=== PATIENT | female | born 1940 | race Caucasian/White ===

== ENCOUNTER 2019-04-27 05:30 | Inpatient (IN) | payer MEDICARE, OTHER ==
[2019-04-27] VITALS (20 sets, daily range): BP systolic 93–179; BP diastolic 36–137
[~2019-04-27] VITALS: Ht 160 cm; Wt 60.8 kg
--- NOTE | 2019-04-27 05:30 | NUR ---
ED Nurse Note: CESAR STONE FROM HOME C/O RESPIRATORY DISTRESS. PER EMS, PT NOT TOLERATING CPAP. GIVEN BREATHING TREATMENT ON SCENE. AO4.
--- NOTE | 2019-04-27 05:30 | NUR ---
ED Nurse Note: IV ACCESS ESTABLISHED. BLOOD COLLECTED; SENT DOWN TO LAB.
[2019-04-27] MEDS ORDERED: PRAVASTATIN SOD20 M1 ORAL (05:31)
--- NOTE | 2019-04-27 05:41 | Emergency Room Report ---
History of Present Illness General Chief Complaint: Dyspnea/Respdistress Source: Patient (Scar Mayer MD) Present Illness HPI This is a 78-year-old female with a history of asthma and hypertension. She presents with chief complaint of respiratory distress. She called 911 because she could not breathe when she woke up. Per EMS she was in severe respiratory distress. She was very tight and wheezing. Her oxygenation on room air was only 79%. They gave her albuterol treatment and nonrebreather mask. That brought it up to mid 80s%. No history of COPD. She is not a smoker. Denies any trauma. Has chest tightness. Nothing made it better. Exertion made it worse. History is limited because of patient respiratory distress. (Scar Mayer MD) Allergies: Coded Allergies: No Known Allergies (Unverified , 04/27/19) Patient History Past Medical History: see triage record, old chart reviewed, HTN, asthma Past Surgical History: other Pertinent Family History: none Social History: Denies: smoking Last Menstrual Period: unable to assess Now: No Immunizations: other Reviewed Nursing Documentation: PMH: Agreed; PSxH: Agreed (Scar Mayer MD) Nursing Documentation-PMH Past Medical History: No History, Except For Hx Hypertension: Yes Hx Asthma: Yes (Scar Mayer MD) Review of Systems Respiratory: Reports: shortness of breath, wheezing All Other Systems: limited - Secondary to condition (Scar Mayer MD) Physical Exam Vital Signs Date Time Temp Pulse Resp B/P (MAP) Pulse Ox O2 Delivery O2 Flow Rate FiO2 04/27/19 05:25 123 36 98 Simple Mask 15.0 Vitals with tachycardia and hypoxia Sp02 EP Interpretation: abnormal General Appearance: severe distress Head: normocephalic, atraumatic Eyes: bilateral eye PERRL, bilateral eye EOMI ENT: hearing grossly normal, normal pharynx Neck: full range of motion, supple, no meningismus Respiratory: chest non-tender, respiratory distress, decreased breath sounds - Very tight, accessory muscle use, wheezing Cardiovascular #1: regular rate, rhythm, no murmur, tachycardia Gastrointestinal: normal bowel sounds, non tender, no mass, no organomegaly, no bruit, non-distended Musculoskeletal: back normal, normal range of motion Neurologic: alert, oriented x3 Psychiatric: mood/affect normal Skin: warm/dry (Scar Mayer MD) Procedures Critical Care Time Critical Care Time Critical care is mandated in this patient who presented with acute respiratory failure. Patient require my urgent intervention to attenuate the risks of respiratory collapse which may lead to cardiovascular collapse and . Critical care time is 35 minutes excluding any reportable procedure. Critical care time included evaluation, multiple reevaluation, looking at old charts, interpreting laboratory and diagnostic data, discussing case with patient and family and consultants, and charting. (Scar Mayer MD) Medical Decision Making Diagnostic Impression: Primary Impression: Acute respiratory failure with hypoxia Additional Impressions: Status asthmaticus Qualified Codes: J45.52 - Severe persistent asthma with status asthmaticus Respiratory distress Lactic acidosis Hypertension Qualified Codes: I10 - Essential (primary) hypertension CHF (congestive heart failure) Qualified Codes: I50.9 - Heart failure, unspecified ER Course Patient presents with respiratory distress requiring BiPAP. She doing much better on BiPAP. Wheezing improved. She also has a lactic acidosis. This may be secondary to her hypoxia and respiratory distress. She may also have a right lower lobe infiltrate. There is a component of CHF also. Because of her condition and cardiac status, unable to give 30 cc/kg bolus. Patient [place] care doctor [place] [facility] [place]. For this reason, I will admit this patient to Dr. Linares. I signed this out to Dr. Pablo for final disposition. (Scar Mayer MD) ER Course Patient was signed out to me for final disposition. I have evaluated the patient as well. Patient was a signout from Dr. Mayer. Patient on clinical exam appeared tachypneic and had diffuse inspiratory expiratory wheezing. Patient was also tachycardic. Because of this evaluation I decided to add magnesium to the patient's treatment. Patient received a total of 2 g of magnesium. After receiving this medication patient appeared to be improved with improved respiratory rate. Patient appeared to be more comfortable. RTO blood gas was performed which show patient to be oxygenating well and with no evidence of CO2 retention. Laboratory work-up that showed an elevated lactic acid level. Severe sepsis was suspected on arrival. Patient had blood cultures initiated lactic acid level was initiated sepsis protocol was initiated on arrival. Patient also received IV antibiotics. Patient however is elderly and has already an elevated BNP. Therefore we were unable to initiate the 30 cc/kg fluid bolus. Instead patient was started on 50 cc fluid bolus with a intention of gentle hydration to improve patient's fluid status. However we cannot start with a 30 cc/kg fluid bolus because of concern for fluid overload. Case was discussed in detail with Dr. Sp Linares. Patient will be admitted to the intensive care unit for further treatment. Patient had a critical medical condition which untreated could potentially result in life or limb threatening injury. Total critical care time excluding procedures was approximately 45 minutes. Labs Test 04/27/19 05:30 04/27/19 06:00 04/27/19 06:06 04/27/19 06:47 White Blood Count 15.1 K/UL (4.8-10.8) Red Blood Count 4.76 M/UL (4.20-5.40) Hemoglobin 14.0 G/DL (12.0-16.0) Hematocrit 42.4 % (37.0-47.0) Mean Corpuscular Volume 89 FL (80-99) Mean Corpuscular Hemoglobin 29.4 PG (27.0-31.0) Mean Corpuscular Hemoglobin Concent 33.0 G/DL (32.0-36.0) Red Cell Distribution Width 11.9 % (11.6-14.8) Platelet Count 435 K/UL (150-450) Mean Platelet Volume 5.6 FL (6.5-10.1) Neutrophils (%) (Auto) 60.3 % (45.0-75.0) Lymphocytes (%) (Auto) 27.8 % (20.0-45.0) Monocytes (%) (Auto) 5.7 % (1.0-10.0) Eosinophils (%) (Auto) 5.2 % (0.0-3.0) Basophils (%) (Auto) 0.9 % (0.0-2.0) Prothrombin Time 10.0 SEC (9.30-11.50) Prothromb Time International Ratio 0.9 (0.9-1.1) Activated Partial Thromboplast Time 24 SEC (23-33) Sodium Level 141 MMOL/L (136-145) Potassium Level 3.7 MMOL/L (3.5-5.1) Chloride Level 105 MMOL/L (98-107) Carbon Dioxide Level 25 MMOL/L (21-32) Anion Gap 11 mmol/L (5-15) Blood Urea Nitrogen 15 mg/dL (7-18) Creatinine 1.2 MG/DL (0.55-1.30) Estimat Glomerular Filtration Rate mL/min (>60) Glucose Level 194 MG/DL (74-106) Calcium Level 8.7 MG/DL (8.5-10.1) Total Bilirubin 0.5 MG/DL (0.2-1.0) Aspartate Amino Transf (AST/SGOT) 22 U/L (15-37) Alanine Aminotransferase (ALT/SGPT) 21 U/L (12-78) Alkaline Phosphatase 82 U/L (46-116) Total Creatine Kinase 295 U/L (26-308) Creatine Kinase MB 2.3 NG/ML (0.0-3.6) Creatine Kinase MB Relative Index 0.7 Troponin I 0.000 ng/mL (0.000-0.056) Pro-B-Type Natriuretic Peptide 1153 pg/mL (0-125) Total Protein 7.4 G/DL (6.4-8.2) Albumin 4.2 G/DL (3.4-5.0) Globulin 3.2 g/dL Albumin/Globulin Ratio 1.3 (1.0-2.7) Urine Color Pale yellow Urine Appearance Clear Urine pH 5 (4.5-8.0) Urine Specific [place] 1.020 (1.005-1.035) Urine Protein 2+ (NEGATIVE) Urine Glucose (UA) Negative (NEGATIVE) Urine Ketones Negative (NEGATIVE) Urine Blood 2+ (NEGATIVE) Urine Nitrite Negative (NEGATIVE) Urine Bilirubin Negative (NEGATIVE) Urine Urobilinogen Normal MG/DL (0.0-1.0) Urine Leukocyte Esterase Negative (NEGATIVE) Urine RBC 2-4 /HPF (0 - 2) Urine WBC 0-2 /HPF (0 - 2) Urine Squamous Epithelial Cells Few /LPF (NONE/OCC) Urine Bacteria Occasional /HPF (NONE) Lactic Acid Level 3.90 mmol/L (0.4-2.0) Arterial Blood pH 7.381 (7.350-7.450) Arterial Blood Partial Pressure CO2 39.4 mmHg (35.0-45.0) Arterial Blood Partial Pressure O2 61.0 mmHg (75.0-100.0) Arterial Blood HCO3 22.8 mmol/L (22.0-26.0) Arterial Blood Oxygen Saturation 90.8 % (95-100) Arterial Blood Base Excess -2.0 (-2-2) Dustin Test Positive Test 04/27/19 07:00 Lactic Acid Level 2.90 mmol/L (0.66-2.22) (Garland Pablo MD) EKG Diagnostic Results Rate: normal, tachycardiac Rhythm: NSR ST Segments: other - LBBB (Scar Mayer MD) Rhythm Strip Diag. Results EP Interpretation: yes Rate: 100 Rhythm: NSR, no PVC's, no ectopy (Scar Mayer MD) EP Interpretation: yes Rate: 94 Rhythm: NSR, no PVC's, no ectopy (Garland Pablo MD) Chest X-Ray Diagnostic Results Chest X-Ray Diagnostic Results : Chest X-Ray Ordered: Yes # of Views/Limited/Complete: 1 View Indication: Shortness of Breath EP Interpretation: Yes Interpretation: no effusion, no pneumothorax, other - Right lower lobe infiltrate Impression: Other - Lower lobe infiltrate Electronically Signed by: Scar Mayer MD (Scar Mayer MD) Chest X-Ray Diagnostic Results : Chest X-Ray Ordered: Yes # of Views/Limited/Complete: 1 View Indication: Shortness of Breath EP Interpretation: Yes Interpretation: no effusion, no pneumothorax, other - Bilateral basilar haziness consistent with pneumonia versus atelectasis Impression: Other - Pneumonia versus atelectasis Electronically Signed by: Electronically signed by Garland Pablo MD (Garland Pablo MD) Last Vital Signs Date Time Temp Pulse Resp B/P (MAP) Pulse Ox O2 Delivery O2 Flow Rate FiO2 04/27/19 05:25 123 36 98 Simple Mask 15.0 Status: improved (Scar Mayer MD) Status: improved (Garland Pablo MD) Disposition: ADMITTED INPATIENT Condition: Critical Scar Mayer MD Apr 27, 2019 05:41 Garland Pablo MD Apr 27, 2019 07:36
[2019-04-27] MEDS ORDERED: Solu-MEDROL 125mg Inj IVP ONE (05:45)
[2019-04-27] MEDS ORDERED: Ipratropium 0.02% Inh Soln 2.5ml UD HHN ONE (05:45)
[2019-04-27] MEDS ORDERED: Albuterol ud Inhalation HHN ONE (05:45)
--- NOTE | 2019-04-27 06:00 | NUR ---
ED Nurse Note: urine collected; sent down to lab.
[2019-04-27 06:10] LABS: BASOPHILS % (AUTO) 0.9 % (0.0-2.0); EOSINOPHILS % (AUTO) 5.2 % (0.0-3.0); HEMATOCRIT 42.4 % (37.0-47.0); LYMPHOCYTES % (AUTO) 27.8 % (20.0-45.0); MEAN CORPUSCULAR VOLUME 89 FL (80-99); MONOCYTES % (AUTO) 5.7 % (1.0-10.0); NEUTROPHILS % (AUTO) 60.3 % (45.0-75.0); PLATELET COUNT 435 K/UL (150-450); RED BLOOD COUNT 4.76 M/UL (4.20-5.40); RED CELL DISTRIBUTION WIDTH 11.9 % (11.6-14.8); WHITE BLOOD COUNT 15.1 K/UL (4.8-10.8)
[2019-04-27] MEDS ORDERED: Cefepime HCl 1 GM in D5W 55 ML IVPB ONE (06:15)
[2019-04-27 06:18] LABS: APPEARANCE,URINE CLEAR; BILIRUBIN, URINE NEGATIVE (NEGATIVE); COLOR,URINE PALE YELLOW; GLUCOSE, URINE (UA) NEGATIVE (NEGATIVE); KETONES,URINE NEGATIVE (NEGATIVE); LEUKOCYTE ESTERASE ,URINE NEGATIVE (NEGATIVE); NITRITE,URINE NEGATIVE (NEGATIVE); PH,URINE 5 (4.5-8.0); PROTEIN,URINE 2+ (NEGATIVE); UROBILINOGEN,URINE NORMAL MG/DL (0.0-1.0)
[2019-04-27 06:22] LABS: ANION GAP 11 mmol/L (5-15); BLOOD UREA NITROGEN 15 mg/dL (7-18); CALCIUM 8.7 MG/DL (8.5-10.1); CARBON DIOXIDE 25 MMOL/L (21-32); CHLORIDE 105 MMOL/L (98-107); CREATININE 1.2 MG/DL (0.55-1.30); POTASSIUM 3.7 MMOL/L (3.5-5.1); SODIUM 141 MMOL/L (136-145)
[2019-04-27 06:23] LABS: INR 0.9 (0.9-1.1)
[2019-04-27 06:35] LABS: ALANINE AMINOTRANSFERASE 21 U/L (12-78); ALBUMIN 4.2 G/DL (3.4-5.0); ALBUMIN/GLOBULIN RATIO 1.3 (1.0-2.7); ALKALINE PHOSPHATASE 82 U/L (46-116); ASPARTATE AMINO TRANSFERASE 22 U/L (15-37); BILIRUBIN,TOTAL 0.5 MG/DL (0.2-1.0); CKMB 2.3 NG/ML (0.0-3.6); CREATINE KINASE 295 U/L (26-308)
[2019-04-27] MEDS ORDERED: Magnesium Sulfate 2ml Inj IVPB ONE (06:45)
[2019-04-27] MEDS: Magnesium Sulfate 1gm/100ml IVPB SCH ×2 (06:48→07:18)
--- NOTE | 2019-04-27 06:51 | NUR ---
ED Nurse Note: vre cre mrsa swabs collected; sent down to lab.
--- NOTE | 2019-04-27 07:00 | NUR ---
ED Nurse Note: iv access established. repeat lactic drawn; sent down to lab.
--- NOTE | 2019-04-27 07:02 | NUR ---
ED Nurse Note: Received pt from Yogesh Puente RN. Second Lactic Acid was sent down to lab by previous RN. Pt is on BiPAP with the same setting on intervention. Pt AOx3, VSS luis. Will cont to monitor.
--- NOTE | 2019-04-27 07:06 | NUR ---
HAND-OFF: Report given to okle velásquez. patient in stable condition. endorsed pending admission.
--- NOTE | 2019-04-27 07:35 | NUR ---
ED Nurse Note: Fi02 changed to 60% by RT. Luca
--- NOTE | 2019-04-27 07:40 | NUR ---
TRANSFER TO FLOOR: Patient transferred to as ordered, per Dr. Pablo. Report given to YOSELYN Chavez at ext [phone]. Belongings kept with patient.
--- NOTE | 2019-04-27 08:15 | NUR ---
NURSE NOTES: Patient arrived at the bedside with YOSELYN Avery. patient is awake and alert to name, time pklace and situation. she denies any pain, placed on bipap with settings 15/5 at 60% FIO2, has a right FA 18G and a Right 18G FA saline lock, will call dr. mario for admission orders.
--- NOTE | 2019-04-27 09:00 | NUR ---
NURSE NOTES: Dr. mario assessed patient at the bedside and placed orders, for patient.
[2019-04-27] MEDS: Lisinopril 20mg tab ORAL SCH ×2 (09:02→17:55)
[2019-04-27] MEDS ORDERED: Azithromycin 500 MG in D5W 275 ML IV SCH (10:00)
--- NOTE | 2019-04-27 10:27 | Diagnostic Imaging Report ---
Indication: Dyspnea Comparison: None A single view chest radiograph was obtained. Findings: Cardiomediastinal appearance is within normal limits for age. The lungs are clear. Pulmonary vascularity is appropriate. The diaphragmatic contour is smooth and costophrenic angles are sharp. No pleural effusions are identified. The bones are unremarkable. Impression: No acute findings
[2019-04-27] MEDS: Albuterol/Ipratropium 3ml neb HHN SCH ×4 (11:00→23:26)
[2019-04-27] MEDS ORDERED: DiphenhydrAMINE 50mg/ml Inj IVP PRN (11:45)
[2019-04-27] MEDS: Solu-MEDROL 125mg Inj IVP SCH ×2 (11:57→17:55)
[2019-04-27] MEDS: LORazepam Inj 2mg/ml 1ml IV PRN ×2 (11:57→16:13)
--- NOTE | 2019-04-27 12:00 | NUR ---
NURSE NOTES: Patient placed on Venturi mask at 55% with saturations at 94-98% RR remains at 24-30, Bipap placed on PRN
--- NOTE | 2019-04-27 15:00 | NUR ---
NURSE NOTES: family member at the bedside and updated on patient condition, she remains on venturi mask at 55% tripoding on bedside table, saturations remains at 95-99% with RR of 26-32.
--- NOTE | 2019-04-27 16:00 | NUR ---
NURSE NOTES: Dr. Platt updated on patient progress on Venturi mask at 55% no further orders given at this time.
--- NOTE | 2019-04-27 16:48 | NUR ---
CASE MANAGEMENT: INITIAL REVIEW 78 YO F BIBA FROM HOME CC: DYSPNEA PMHx: HTN. ASTHMA. SI:RESP FAILURE. PNA. HYPOXIA. HR 123 RR 36 B/P SATS 98% ON SIMPLE MASK 15L WBC 15.1 GLU 194 BNP 1153 ABGs PO2 61 O2 SAT 90.8 IS: GIOVANNA NEB HHN X1 SOLU MEDROL IV X1 CEFEPIME IV X1 LEVOQUIN IV X1 PATIENT ADMITTED TO ICU 04/27/2019 @ [facility] DCP:PATIENT TO BE DISCHARGED TO HOME ONCE MEDICALLY CLEARED. PLAN OF CARE: PULMO CONSULT Addendum: 04/28/19 at 1557 by Sandra Pruett CM INTERQUAL MET FOR ACUTE
--- NOTE | 2019-04-27 17:11 | History & Physical ---
History and Physical History & Physicial dict status asthmaticus HTN Sp Linares MD Apr 27, 2019 17:11
--- NOTE | 2019-04-27 18:00 | NUR ---
NURSE NOTES: Patient remains calm on Venturi mask at 55% with saturations at 96-99%, she is resting with no distress noted, patient remains awake and alert x4, denies any pain over chest
--- NOTE | 2019-04-27 19:23 | NUR ---
HAND-OFF: Report given to YOSELYN azar.
--- NOTE | 2019-04-27 19:24 | NUR ---
NURSE NOTES: Received patient from YOSELYN Chavez. Patient VS stable at this time. Patient blood pressure 124/54, oxygen saturation 99-100%, RR 28, and no sign of acute distress. Patient showing sinus tachycardia with rate of 106 on the natural resource manager. Patient reported to be alert and oriented when awake but is sleeping at this time. Will assess mental status when patient wakes up. Patient on Venturi mask with 50% FiO2 at this time. Patient has an order for BiPAP as needed. Will monitor patient for signs of a need for BIPAP support. Patient has some accessory muscle use visible upon inspiration. YOSELYN Chavez reported that her breathing has improved significantly since admission. Patient laying on her left side. No sign of acute distress. Patient bed in low position with bed alarm on and call light in reach. Will continue to monitor patient breathing and oxygen saturation.
--- NOTE | 2019-04-27 19:25 | NUR ---
NURSE NOTES: Patient complaining of headache. Dr Linares notified. Patient states that she takes excedrin for headache. ordered Excedrin one dose PO every 6 hours PRN for headache. Order placed. Awaiting pharmacy verification. Patient on 4L NC. Oxygen saturation 100%. Patient coughing up scant amount of phlegm.Patient states that her chest feels better. Wheezes present in all four lobes. Will continue to monitor.
[2019-04-27] MEDS: Excedrin Migraine tab ORAL PRN (20:05)
--- NOTE | 2019-04-27 22:00 | NUR ---
NURSE NOTES: Patient blood pressure dropped from 134/62 at 2030 to 94/38 at 2200. Patient blood pressure recycled at 93/44. Patient sleeping. Will notify MD and continue to monitor.
[2019-04-27] MEDS: cefTRIAXone 1 GM in D5W 55 ML IVPB SCH (22:30)
--- NOTE | 2019-04-27 23:00 | History and Physical Report ---
DATE OF ADMISSION: 04/27/2019 CHIEF COMPLAINT: Short of breath. HISTORY OF PRESENT ILLNESS: The patient presented to the emergency department with several days of increasing shortness of breath and cough. She had been to urgent care yesterday for cough and was treated with nebulizer therapy. Her blood pressure was elevated. She was discharged with a Medrol Dosepak. Today, she has presented via paramedics with severe shortness of breath and saturation was only 79%. She was given oxygen and placed on the BiPAP. She was given steroids and antibiotics. PAST MEDICAL HISTORY: Hypertension and asthma. Smoking none. ALLERGIES: None. REVIEW OF SYSTEMS: Cannot be obtained because she is on BiPAP, but she can answer a few simple questions. She indicates she has a cough with clear sputum and no high fever. She has no pain. She has had asthma since childhood. PHYSICAL EXAMINATION: GENERAL: The patient is alert and responds appropriately. She has tachycardia and had tachypneic earlier that has resolved. HEENT: The head is normocephalic. NECK: No jugular venous distention. CHEST: Decreased breath sounds. CARDIAC: Rhythm is regular. ABDOMEN: Soft and nontender. EXTREMITIES: No clubbing, cyanosis, or edema. LABORATORY AND DIAGNOSTIC DATA: Chest x-ray shows no acute changes. IMPRESSION: 1. Status asthmaticus. 2. Hypertension. PLAN: The patient was given steroids, bronchodilator treatments, and antibiotics. The elevated lactic acid levels may be a result of respiratory distress without sepsis. However, it is prudent to cover with antibiotics for possible respiratory infection. She was given some fluids, but the natriuretic peptide is somewhat elevated. We will start a trial of natural breathing without BiPAP and start her on oral diet. She will remain in the intensive care for now. Sp Linares M.D. DR: PANKAJ JOB#: [id number] CC: Sp Linares M.D.; Fax#: [phone]
--- NOTE | 2019-04-27 23:04 | NUR ---
NURSE NOTES: Spoke with Dr Linares regarding the patient's blood pressure of 98/36 along with lactic acid level of 2.3 and WBC of 15.1. He ordered D5NS at 75mL/hr. Will continue to monitor patient's blood pressure and vital signs. Dr Linares notified me that Dr Colon is international marketing executive for him tonight.
[2019-04-27] MEDS: D5NS 1,000 ML IV SCH (23:11)
[2019-04-28] VITALS (25 sets, daily range): BP systolic 95–152; BP diastolic 41–102
[2019-04-28] MEDS: Solu-MEDROL 125mg Inj IVP SCH ×3 (00:20→11:38)
--- NOTE | 2019-04-28 01:30 | NUR ---
NURSE NOTES: Patient sleeping. blood pressure now 112/59. D5NS is running at 75mL/hr. Lactic acid level 2.4. Will endorse to day shift to notify MD and will order another lactic lab to be drawn in 4 hours per protocol. No sign of acute distress. Patient sleeping. Patient on 4L NC with oxygen saturation 100%. Patient showing sinus rhythm with bundle branch block on the monitor. Patient bed in low position with call light in reach.
--- NOTE | 2019-04-28 01:59 | NUR ---
NURSE NOTES: Patient reported that she takes a sleeping pill at home. Patient informed that given her current respiratory condition, sleeping pills are not advisable.
--- NOTE | 2019-04-28 03:30 | NUR ---
NURSE NOTES: Patient sleeping with no sign of acute distress. RT turned NC from 4L to 2L. Patient's blood pressure 104/53. Patient bed in low position with call light within reach. Will continue to monitor for signs of acute respiratory distress.
[2019-04-28] MEDS: Albuterol/Ipratropium 3ml neb HHN SCH ×6 (03:38→23:43)
--- NOTE | 2019-04-28 05:30 | NUR ---
NURSE NOTES: Patient sleeping. Blood pressure 98/48. Patient's blood pressure seems to drop when she is soundly sleeping. Patient lying flat with legs elevated to improve blood pressure/circulation while she sleeps. Oxygen saturation 100% and school lunch monitor showing sinus rhythm with a BBB and rate of 97 on the school lunch monitor. Patient showing on sign of acute distress. Patient bed in low position and call light in reach.
--- NOTE | 2019-04-28 07:11 | NUR ---
HAND-OFF: Report given to YOSELYN Ash. Patient blood pressure low at 95/50. This is abnormal for this patient. Patient on D5NS at 75mL/hr. Patient is asymptomatic. Patient denies pain, dizziness, or acute distress. MD aware of blood pressure. Patient Lactic consistently about 2. Current lactic acid is 2.7. Endorsed to follow up with Dr Linares.
--- NOTE | 2019-04-28 07:15 | NUR ---
NURSE NOTES: Received pt from Mackenzie Shipman RN. Pt is AAOx4, BP 95/50- asymptomatic. Pt is on 2L O2 via NC. RFA + LFA 18g IVs noted. RFA IV is running D5NS at 75cc/hr. Pt uses bedpan to void/eliminate. No skin alterations noted at this time. Last LA noted to be 2.7. Per YOSELYN Mann. LA is scheduled to be redrawn at 0800 per protocol. Bed is in lowest position with alarm on, call light within reach, will continue to monitor pt and update Dr. Linares.
[2019-04-28] MEDS: Lisinopril 20mg tab ORAL SCH (08:34)
[2019-04-28] MEDS: Vitamin D 1000 IU Tab ORAL SCH (08:34)
[2019-04-28] MEDS: Azithromycin 250mg tab ORAL SCH (08:34)
[2019-04-28] MEDS ORDERED: Azithromycin 250 MG in D5W 275 ML IV SCH (09:00)
--- NOTE | 2019-04-28 10:48 | NUR ---
NURSE NOTES: Pt asleep in bed no signs of distress. VS noted and charted. Addendum: 04/28/19 at 1049 by Nilsa Rodríguez RN Amendement: correct documentation time 1966
--- NOTE | 2019-04-28 11:26 | NUR ---
NURSE NOTES: Dr Linares came in to assess pt right now and is aware of pt's lactic acid levels trending up. No new orders at this time. Pt recieving breathing treatment. No distress noted.
[2019-04-28] MEDS: D5NS 1,000 ML IV SCH ×2 (11:40→23:29)
--- NOTE | 2019-04-28 11:52 | Pulmonology Progress Note ---
Assessment/Plan Assessment/Plan 1. Status asthmaticus. 2. Hypertension. BP low; not stable to move out of ICU breathing better used BiPAP overnight improving Subjective Respiratory: Reports: productive cough, shortness of breath Allergies: Coded Allergies: No Known Allergies (Unverified , 04/27/19) Objective Last 24 Hour Vital Signs Date Time Temp Pulse Resp B/P (MAP) Pulse Ox O2 Delivery O2 Flow Rate FiO2 04/28/19 11:00 93 16 112/50 (70) 100 04/28/19 10:44 88 16 100 Nasal Cannula 2.0 28 04/28/19 10:35 90 19 100 Nasal Cannula 3.0 32 04/28/19 10:00 89 16 113/63 (80) 100 04/28/19 09:00 90 21 109/55 (73) 100 04/28/19 08:34 95/50 04/28/19 08:00 2.0 04/28/19 08:00 Nasal Cannula 2.0 04/28/19 08:00 97.2 94 22 113/60 (77) 99 04/28/19 08:00 95 04/28/19 07:00 95 18 95/50 (65) 93 04/28/19 06:44 Room Air 21 04/28/19 06:44 Room Air 21 04/28/19 06:43 96 Room Air 21 04/28/19 06:00 94 19 98/47 (64) 97 04/28/19 05:00 100 21 98/48 (65) 100 04/28/19 04:00 98.5 101 24 110/47 (68) 92 04/28/19 04:00 89 04/28/19 04:00 2.0 04/28/19 04:00 Nasal Cannula 4.0 04/28/19 03:46 86 18 100 Nasal Cannula 2.0 28 04/28/19 03:35 87 19 98 Nasal Cannula 3.0 32 04/28/19 03:17 92 22 104/53 (70) 97 04/28/19 03:00 92 20 113/50 (71) 100 04/28/19 02:00 92 20 113/50 (71) 100 04/28/19 01:00 95 21 112/59 (76) 100 04/28/19 00:00 97.8 97 18 113/41 (65) 98 04/28/19 00:00 87 04/28/19 00:00 4.0 04/28/19 00:00 Nasal Cannula 4.0 04/27/19 23:36 88 20 100 Nasal Cannula 4.0 36 04/27/19 23:28 86 23 95 Nasal Cannula 4.0 36 04/27/19 23:00 93 26 98/36 (56) 97 04/27/19 22:38 95 29 93/44 (60) 98 04/27/19 22:00 98 27 94/38 (56) 99 04/27/19 21:00 97 19 134/62 (86) 98 04/27/19 20:00 Nasal Cannula 4.0 04/27/19 20:00 104 04/27/19 20:00 4.0 04/27/19 20:00 99.0 106 23 124/54 (77) 95 04/27/19 19:32 102 24 100 Nasal Cannula 4.0 36 04/27/19 19:25 100 24 100 Venturi Mask 14.0 55 04/27/19 19:00 100 25 149/73 (98) 97 04/27/19 18:00 98 25 154/79 (104) 96 04/27/19 17:55 150/74 04/27/19 17:00 107 23 164/78 (106) 97 04/27/19 16:00 13.0 55 04/27/19 16:00 104 04/27/19 16:00 Venturi Mask Venturi Mask 04/27/19 16:00 96.7 105 28 148/75 (99) 93 04/27/19 15:15 114 26 82 Venturi Mask 14.0 55 04/27/19 15:00 106 30 154/74 (100) 98 04/27/19 15:00 105 26 80 Venturi Mask 14.0 55 04/27/19 14:00 113 24 179/84 (115) 92 04/27/19 13:00 115 30 157/77 (103) 94 04/27/19 12:00 96.7 108 29 148/64 (92) 92 04/27/19 12:00 Venturi Mask Venturi Mask 04/27/19 12:00 104 Intake and Output 04/27/19 04/28/19 18:59 06:59 Intake Total 240 ml 620 ml Output Total 0 ml 300 ml Balance 240 ml 320 ml Intake Oral 40 ml IV Total 200 ml 580 ml Other 40 ml Output Urine Total 0 ml 300 ml # Voids 5 1 # Bowel Movements 2 General Appearance: no acute distress Respiratory/Chest: decreased breath sounds, expiratory wheezing Cardiovascular: normal rate Laboratory Tests 04/27/19 16:30: Lactic Acid Level 2.30H 04/27/19 20:20: Lactic Acid Level 2.30H 04/27/19 23:00: Lactic Acid Level 2.50H 04/27/19 23:45: Lactic Acid Level 2.40H 04/28/19 03:30: Lactic Acid Level 2.70H 04/28/19 04:45: Lactic Acid Level 2.70H 04/28/19 08:03: Lactic Acid Level 2.90H Current Medications Medications (Trade) Dose Ordered Sig/Markus Route PRN Reason Start Time Stop Time Status Last Admin Dose Admin Acetaminophen/ Aspirin/Caffeine (Excedrin Migraine) 1 ea Q6H PRN ORAL headache 04/27/19 19:30 05/27/19 19:29 04/27/19 20:05 Albuterol/ Ipratropium (Albuterol/ Ipratropium) 3 ml Q4HRT HHN 04/27/19 11:00 05/02/19 10:59 04/28/19 10:43 Azithromycin (Zithromax) 250 mg DAILY ORAL 04/28/19 09:00 05/05/19 08:59 04/28/19 08:34 Ceftriaxone Sodium 1 gm/ Dextrose 55 ml @ 110 mls/hr Q24H IVPB 04/27/19 22:00 05/04/19 21:59 04/27/19 22:30 Dextrose/Sodium Chloride 1,000 ml @ 75 mls/hr [id number] IV 04/27/19 23:15 05/27/19 23:14 04/28/19 11:40 Diphenhydramine HCl (Benadryl) 25 mg Q4H PRN IVP Itching 04/27/19 11:45 05/27/19 11:44 Levothyroxine Sodium (Synthroid) 50 mcg DAILY IV 04/28/19 09:00 05/28/19 08:59 04/28/19 09:36 Lisinopril (Prinivil) 20 mg BID ORAL 04/27/19 09:02 05/27/19 09:01 04/27/19 17:55 Lorazepam (Ativan 2mg/ml 1ml) 0.5 mg Q4H PRN IV For Anxiety 04/27/19 11:45 05/04/19 11:44 04/27/19 16:13 Methylprednisolone Sodium Succinate (Solu-MEDROL) 60 mg EVERY 6 HOURS IVP 04/27/19 12:00 05/27/19 11:59 04/28/19 11:38 Pravastatin Sodium (Pravachol) 20 mg BEDTIME ORAL 04/27/19 21:00 05/27/19 20:59 04/27/19 20:49 Vitamin D (Vitamin D) 3,000 intlu DAILY ORAL 04/28/19 09:00 05/28/19 08:59 04/28/19 08:34 Sp Linares MD Apr 28, 2019 11:52
--- NOTE | 2019-04-28 12:29 | Coder Physician Query ---
Clarification is required for compliance, coding accuracy, and to reflect severity of illness for this patient Dear Dr. Sp Linares Date: 04/28/2019 [place] [facility]/CDS Name: Bhargavi Lyn Clinical Documentation states: ED note: 78-year-old female with a history of asthma and hypertension. She presents with chief complaint of respiratory distress...Acute respiratory failure with hypoxia...Status asthmaticus HNP: Presented via paramedics with severe shortness of breath and saturation was only 79%. She was given oxygen and placed on the BiPAP. She was given steroids and antibiotics...Status asthmaticus...elevated lactic acid levels may be a result of respiratory distress without sepsis 04/27 pulse ox: 96 on 15 L, FiO2 40 Treatment: 2-15 L NC/Venturi Mask There is conflicting/inconsistent documentation, kindly verify presence/absence of Acute Respiratory Failure. PHYSICIAN RESPONSE: [x] Acute Respiratory Failure, hypoxic type [] Acute Respiratory Failure ruled out [] Other [] Unknown Present on Admission: [x] Yes [] No [] Clinically Undetermined Physician signature Date Please also document in your Progress Notes and/or Discharge Summary and indicate if the condition was present on admission. MTDD
--- NOTE | 2019-04-28 13:27 | NUR ---
Pt sat on edge of bed to dangle feet per Dr. Linares's request. Pt tolerated sitting position (BP did not change from baseline/ SaO2 94%). Pt moved back in bed and now asleep. LA level now below 2.0.
--- NOTE | 2019-04-28 15:37 | NUR ---
NURSE NOTES: Pt is awake in bed, reading a book accompanied by daughter at the bedside. Pt is on 2L O2 via NC and saturating at 95%. No distress. Continuing to monitor pt.
--- NOTE | 2019-04-28 17:30 | NUR ---
Pt asked to use bed commode and was able to void. Assisted pt with brushing teeth and oral care. Pt placed back in bed and asked for lights off to sleep. No signs of distress. VS noted and recorded. Will continue to monitor.
--- NOTE | 2019-04-28 19:30 | NUR ---
NURSE NOTES:Received pt awake and alert oriented x3 SABILLON x4, On 02 at 2L/nc ,02 sat 100%, lung sound clear to auscultation. SR on the monitor. Bp stable afebrile. Voiding per bedside commode. Instructed to call RN for assistance, verbalized understanding.- Will continue to monitor.
--- NOTE | 2019-04-28 19:48 | NUR ---
HAND-OFF: Report given to YOSELYN Burk. Pt in stable condition.
[2019-04-28] MEDS: Solu-MEDROL 40mg Inj IVP SCH (20:20)
--- NOTE | 2019-04-28 21:30 | NUR ---
NURSE NOTES: Refused BIPAP,also refused SCD aware Dr Linares . was aware.
[2019-04-28] MEDS: Lisinopril 10mg tab ORAL SCH (21:42)
[2019-04-28] MEDS: TraZODone 50mg tab ORAL SCH (21:43)
[2019-04-28] MEDS: cefTRIAXone 1 GM in D5W 55 ML IVPB SCH (21:46)
--- NOTE | 2019-04-28 23:30 | NUR ---
NURSE NOTES:Dozing on and off VSS. No resp distress noted.
[2019-04-29] VITALS (23 sets, daily range): BP systolic 107–157; BP diastolic 52–101
--- NOTE | 2019-04-29 02:00 | NUR ---
NURSE NOTES:Got up to bed side commode to void, tolerating well. Gait was steady.
[2019-04-29] MEDS: Albuterol/Ipratropium 3ml neb HHN SCH ×6 (03:08→23:09)
[2019-04-29] MEDS: Solu-MEDROL 40mg Inj IVP SCH ×3 (04:28→20:05)
--- NOTE | 2019-04-29 04:40 | NUR ---
NURSE NOTES:Refused bath at this time. Verbalizing to have it later on the day.
[2019-04-29 06:15] LABS: HEMATOCRIT 35.1 % (37.0-47.0); HEMOGLOBIN 11.7 G/DL (12.0-16.0); MEAN CORPUSCULAR VOLUME 88 FL (80-99); PLATELET COUNT 324 K/UL (150-450); RED BLOOD COUNT 3.98 M/UL (4.20-5.40); RED CELL DISTRIBUTION WIDTH 12.2 % (11.6-14.8); WHITE BLOOD COUNT 14.9 K/UL (4.8-10.8)
[2019-04-29 06:40] LABS: ALANINE AMINOTRANSFERASE 23 U/L (12-78); ALBUMIN 3.3 G/DL (3.4-5.0); ALBUMIN/GLOBULIN RATIO 1.2 (1.0-2.7); ALKALINE PHOSPHATASE 57 U/L (46-116); ANION GAP 10 mmol/L (5-15); ASPARTATE AMINO TRANSFERASE 39 U/L (15-37); BILIRUBIN,TOTAL 0.2 MG/DL (0.2-1.0); BLOOD UREA NITROGEN 21 mg/dL (7-18); CALCIUM 8.4 MG/DL (8.5-10.1); CARBON DIOXIDE 23 MMOL/L (21-32); CHLORIDE 108 MMOL/L (98-107); CREATININE 1.1 MG/DL (0.55-1.30); POTASSIUM 3.5 MMOL/L (3.5-5.1); SODIUM 141 MMOL/L (136-145)
--- NOTE | 2019-04-29 07:00 | NUR ---
NURSE NOTES:Still sleepy to get up. VSS
--- NOTE | 2019-04-29 07:27 | NUR ---
HAND-OFF: Report given to Shantanu TOPETE.
--- NOTE | 2019-04-29 07:40 | NUR ---
NURSE NOTES: Received the patient from YOSELYN Burk. Patient is asleep, easily arousable. Patient on 2L O2 via NC. O2 sat 100%. SR noted on the monitor. No acute distress noted. Left forearm 18G and right forearm 18G intact, running D5NS at 75ml/hr. Bed in lowest position, locked, side rails upx3. Call light within reach. Will continue to monitor.
--- NOTE | 2019-04-29 08:00 | NUR ---
NURSE NOTES: Patient refused SCDs. Risks and benefits explained to the patient. Patient verbalized understanding.
[2019-04-29] MEDS: Lisinopril 10mg tab ORAL SCH ×2 (09:09→21:06)
[2019-04-29] MEDS: Azithromycin 250mg tab ORAL SCH (09:09)
[2019-04-29] MEDS: Vitamin D 1000 IU Tab ORAL SCH (09:09)
--- NOTE | 2019-04-29 10:00 | NUR ---
NURSE NOTES: Dr. Linares at bedside. Informed that pt is refusing SCDs and pt refused bipap last night. VSS. okay to transfer the patient to tele.
--- NOTE | 2019-04-29 12:00 | NUR ---
NURSE NOTES: Patient sleeping in bed. VSS. On 2L O2 via NC. O2 sat 100%. No acute distress noted.
[2019-04-29] MEDS: D5NS 1,000 ML IV SCH (13:15)
--- NOTE | 2019-04-29 13:16 | Pulmonology Progress Note ---
Assessment/Plan Assessment/Plan 1. Status asthmaticus. 2. Hypertension. BP better lower O2 needs breathing better no BiPAP overnight improving Tele Subjective ROS Limited/Unobtainable: No Constitutional: Reports: no symptoms Respiratory: Reports: shortness of breath - better Allergies: Coded Allergies: No Known Allergies (Unverified , 04/27/19) Objective Last 24 Hour Vital Signs Date Time Temp Pulse Resp B/P (MAP) Pulse Ox O2 Delivery O2 Flow Rate FiO2 04/29/19 13:00 90 18 144/62 (89) 99 04/29/19 12:00 2.0 04/29/19 12:00 Nasal Cannula 2.0 04/29/19 12:00 93 04/29/19 12:00 98.0 86 18 145/64 (91) 100 04/29/19 11:15 95 16 100 Nasal Cannula 2.0 28 04/29/19 11:05 92 21 100 Nasal Cannula 2.0 28 04/29/19 11:00 86 18 132/61 (84) 100 04/29/19 10:00 93 19 138/66 (90) 100 04/29/19 09:09 137/60 04/29/19 09:00 95 23 137/60 (85) 100 04/29/19 08:00 88 04/29/19 08:00 2.0 04/29/19 08:00 Nasal Cannula 2.0 04/29/19 08:00 98.4 92 14 124/56 (78) 99 04/29/19 07:47 93 14 99 Nasal Cannula 2.0 28 04/29/19 07:40 99 Nasal Cannula 2.0 04/29/19 07:37 94 20 98 Nasal Cannula 2.0 28 04/29/19 07:00 90 19 157/68 (97) 100 04/29/19 06:00 91 18 142/60 (87) 99 04/29/19 05:00 92 17 144/60 (88) 99 04/29/19 04:00 98.0 98 18 134/58 (83) 99 04/29/19 04:00 Nasal Cannula 2.0 04/29/19 04:00 2.0 04/29/19 04:00 99 04/29/19 03:19 101 22 100 Nasal Cannula 2.0 28 04/29/19 03:09 97 18 100 Nasal Cannula 2.0 28 04/29/19 03:00 98 22 125/68 (87) 100 04/29/19 02:00 91 16 110/60 (77) 98 04/29/19 01:00 94 21 107/52 (70) 100 04/29/19 00:00 98.4 103 21 119/58 (78) 100 04/29/19 00:00 103 04/29/19 00:00 2.0 04/29/19 00:00 Nasal Cannula 2.0 04/28/19 23:55 104 19 100 Nasal Cannula 2.0 28 04/28/19 23:44 96 22 100 Nasal Cannula 2.0 28 04/28/19 23:00 97 21 125/65 (85) 100 04/28/19 22:00 98 21 139/65 (89) 100 04/28/19 21:42 121/48 04/28/19 21:00 103 21 120/48 (72) 100 04/28/19 20:13 97 21 100 Nasal Cannula 2.0 28 04/28/19 20:04 99 Room Air 21 04/28/19 20:03 96 23 99 Nasal Cannula 2.0 28 04/28/19 20:00 Nasal Cannula 2.0 04/28/19 20:00 2.0 04/28/19 20:00 98.2 105 22 121/48 (72) 100 04/28/19 19:00 106 19 132/102 (112) 94 04/28/19 18:00 100 23 152/68 (96) 100 04/28/19 17:00 94 21 130/61 (84) 100 04/28/19 16:00 99 04/28/19 16:00 98.0 102 22 132/61 (84) 98 04/28/19 16:00 2.0 04/28/19 16:00 Nasal Cannula 2.0 04/28/19 15:01 94 19 94 Nasal Cannula 2.0 28 04/28/19 15:00 97 22 135/67 (89) 97 04/28/19 14:55 96 18 95 Nasal Cannula 2.0 28 04/28/19 14:00 100 22 120/56 (77) 99 Intake and Output 04/28/19 04/29/19 18:59 06:59 Intake Total 1100 ml 1070 ml Output Total 550 ml Balance 1100 ml 520 ml Intake Oral 200 ml 170 ml IV Total 900 ml 900 ml Output Urine Total 550 ml # Voids 1 1 General Appearance: no acute distress HEENT: atraumatic Respiratory/Chest: decreased breath sounds, expiratory wheezing Cardiovascular: normal rate Microbiology Date/Time Source Procedure Growth Status 04/27/19 06:50 Nasal Nares MRSA Culture - Final NO METHICILLIN RESISTANT STAPH AUREUS... Complete 04/27/19 06:50 Rectum VRE Culture - Final NO VANCOMYCIN RESISTANT ENTEROCOCCUS ... Complete 04/27/19 06:50 Rectum - Final NO CARBAPENEM-RESISTANT ENTEROBACTERI... Complete Laboratory Tests 04/29/19 04:20: White Blood Count 14.9H, Red Blood Count 3.98L, Hemoglobin 11.7L, Hematocrit 35.1L, Mean Corpuscular Volume 88, Mean Corpuscular Hemoglobin 29.3, Mean Corpuscular Hemoglobin Concent 33.2, Red Cell Distribution Width 12.2, Platelet Count 324, Mean Platelet Volume 5.6L, Neutrophils (%) (Auto) , Lymphocytes (%) ( Auto) , Monocytes (%) (Auto) , Eosinophils (%) (Auto) , Basophils (%) (Auto) , Sodium Level 141, Potassium Level 3.5, Chloride Level 108H, Carbon Dioxide Level 23, Anion Gap 10, Blood Urea Nitrogen 21H, Creatinine 1.1, Estimat Glomerular Filtration Rate , Glucose Level 164H, Calcium Level 8.4L, Total Bilirubin 0.2, Aspartate Amino Transf (AST/SGOT) 39H, Alanine Aminotransferase ( ALT/SGPT) 23, Alkaline Phosphatase 57, Total Protein 6.1L, Albumin 3.3L, Globulin 2.8, Albumin/Globulin Ratio 1.2 Current Medications Medications (Trade) Dose Ordered Sig/Markus Route PRN Reason Start Time Stop Time Status Last Admin Dose Admin Acetaminophen/ Aspirin/Caffeine (Excedrin Migraine) 1 ea Q6H PRN ORAL headache 04/27/19 19:30 05/27/19 19:29 04/27/19 20:05 Albuterol/ Ipratropium (Albuterol/ Ipratropium) 3 ml Q4HRT HHN 04/27/19 11:00 05/02/19 10:59 04/29/19 11:05 Azithromycin (Zithromax) 250 mg DAILY ORAL 04/28/19 09:00 05/05/19 08:59 04/29/19 09:09 Ceftriaxone Sodium 1 gm/ Dextrose 55 ml @ 110 mls/hr Q24H IVPB 04/27/19 22:00 05/04/19 21:59 04/28/19 21:46 Dextrose/Sodium Chloride 1,000 ml @ 75 mls/hr [id number] IV 04/27/19 23:15 05/27/19 23:14 04/28/19 23:29 Diphenhydramine HCl (Benadryl) 25 mg Q4H PRN IVP Itching 04/27/19 11:45 05/27/19 11:44 Levothyroxine Sodium (Synthroid) 50 mcg DAILY@0630 ORAL 04/29/19 06:30 05/29/19 06:29 04/29/19 06:05 Lisinopril (Zestril) 10 mg Q12HR ORAL 04/28/19 21:00 05/28/19 20:59 04/29/19 09:09 Methylprednisolone Sodium Succinate (Solu-MEDROL) 40 mg Q8H IVP 04/28/19 20:00 05/27/19 19:59 04/29/19 11:57 Pravastatin Sodium (Pravachol) 40 mg BEDTIME ORAL 04/28/19 21:00 05/28/19 20:59 04/28/19 21:42 Trazodone HCl (Desyrel) 50 mg BEDTIME ORAL 04/28/19 21:00 05/28/19 20:59 04/28/19 21:43 Vitamin D (Vitamin D) 3,000 intlu DAILY ORAL 04/28/19 09:00 05/28/19 08:59 04/29/19 09:09 Sp Linares MD Apr 29, 2019 13:15
--- NOTE | 2019-04-29 14:00 | NUR ---
NURSE NOTES: Patient resting in bed comfortably, reading a book. No acute distress noted. VSS
[2019-04-29] MEDS: Excedrin Migraine tab ORAL PRN (15:39)
--- NOTE | 2019-04-29 15:40 | NUR ---
NURSE NOTES: Patient c/o headache. Excedrin given.
--- NOTE | 2019-04-29 16:42 | NUR ---
NURSE NOTES: Patient resting in bed comfortably. No c/o headache. Patient's friend at bedside.
--- NOTE | 2019-04-29 18:30 | NUR ---
NURSE NOTES: Patient eating dinner in bed. No acute distress noted. On 2L O2 via NC. VSS.
[2019-04-29] MEDS ORDERED: NS 275ml ONE (19:07)
[2019-04-29] MEDS ORDERED: D5 1/2NS 1000ml IV ONE (19:07)
[2019-04-29] MEDS ORDERED: D5NS 1000ml IV ONE (19:07)
[2019-04-29] MEDS ORDERED: Tubing IV Secondary IV ONE (19:07)
--- NOTE | 2019-04-29 19:30 | NUR ---
NURSE NOTES:Received pt awake and alert oriented x3 Daniel x4, SR on the monitor, bp stable afebrile. On 02 at 2L/nc resp even and spont. BS+, lung sounds clear to auscultation. 02 sat 100%. NO SOB noted, IVF D5NS at 75ml/hr, infusing well per RT Forearm, site atraumatic- Will continue to monitor.
--- NOTE | 2019-04-29 19:37 | NUR ---
HAND-OFF: Report given to YOSELYN Burk.
[2019-04-29] MEDS: TraZODone 50mg tab ORAL SCH (21:06)
--- NOTE | 2019-04-29 21:09 | Cardiology Report ---
APPROVED REPORT EKG Measurement Heart [id number] VA [id number] Sinus tachycardia Possible Left atrial enlargement Left axis deviation Left bundle branch block Abnormal ECG
[2019-04-29] MEDS: cefTRIAXone 1 GM in D5W 55 ML IVPB SCH (22:03)
[2019-04-30] VITALS (8 sets, daily range): BP systolic 122–173; BP diastolic 66–89
--- NOTE | 2019-04-30 01:15 | NUR ---
NURSE NOTES:Transfer to 204-[address] Spencer order. Full report given to Jatin TOPETE. Pts VSS.
--- NOTE | 2019-04-30 01:20 | NUR ---
NURSE NOTES: Received report from Bhargavi RN, pt. transferred from ICU- pt. is A/O x's4- able to make needs known no signs or symptoms of acute cardiac or respiratory distress noted, bed in lowest position and call light within easy reach, bed alarm on, side rails up x's3- safety brakes engaged, pt. appears to be sating well on 2L NC at 98%- no distress noted, pt. appear to be resting comfortably- making conversation, pt. is clean and dry, full body assessment done- skin intact, pt. oriented to room and pt. teaching done, RFA 18G running D5NS at 75cc/hr- IV intact and patent, LFA 18G IV intact and patent, safety measures continued, will continue with plan of cafe.
--- NOTE | 2019-04-30 01:25 | NUR ---
INTER-FACILITY TRANSFER: Patient transferred to tele, per Dr Linares. Report given to Jatin TOPETE]. Patient transferred with valuables and medications. Belongings verified upon transferr and given to. Family/S.O. notified of transfer.
[2019-04-30] MEDS ORDERED: Excedrin Migraine tab ORAL PRN (01:30)
[2019-04-30] MEDS ORDERED: DiphenhydrAMINE 50mg/ml Inj IVP PRN (01:45)
[2019-04-30] MEDS: D5NS 1,000 ML IV SCH ×2 (01:47→16:15)
[2019-04-30] MEDS: Solu-MEDROL 40mg Inj IVP SCH ×3 (03:14→21:05)
[2019-04-30] MEDS: Albuterol/Ipratropium 3ml neb HHN SCH ×6 (03:25→23:00)
--- NOTE | 2019-04-30 07:15 | NUR ---
HAND-OFF: Report given to Sara TOPETE, pt. remains stable and signs of distress noted.
--- NOTE | 2019-04-30 08:13 | NUR ---
NURSE NOTES: pt awake alert, no distress. no sob. no c/o pain. call light within reach. bed in lowest position, locked.
[2019-04-30] MEDS: Azithromycin 250mg tab ORAL SCH (08:29)
[2019-04-30] MEDS: Vitamin D 1000 IU Tab ORAL SCH (08:30)
[2019-04-30] MEDS ORDERED: Lisinopril 10mg tab ORAL SCH ×3 (09:00→21:00)
--- NOTE | 2019-04-30 09:16 | NUR ---
CASE MANAGEMENT: REVIEW 04/30/2019 SI:RESP FAILURE. PNA. HYPOXIA. T 97.4 HR 70 RR 18 B/P 130/70 SATS 97% ON 2L/NC NO LABS TODAY IS: IVF @ 75 mL/HR PRAVACHOL PO QHS TRAZODONE PO QHS AZITHROMYCIN PO QD LISINOPRIL PO Q12H CEFTRIAXONE IV Q24H SOLU MEDROL IV Q8H TELE STATUS DCP:PATIENT TO BE DISCHARGED TO HOME ONCE MEDICALLY CLEARED. PLAN OF CARE: LIANA PAUL
--- NOTE | 2019-04-30 14:00 | NUR ---
PT EVALUATION NOTE: Patient seen for initial evaluation. Patient independent with all functional mobility (bed mobility, transfers and ambulation without an AD) including negotiating stairs. Skilled inpatient PT intervention not warranted, patient discharged from physical therapy. Davis TOPETE notified. Patient cleared to ambulate in hallway. Anticipate discharge home once medically cleared by MD. No DME needs identified at this time. Addendum: 04/30/19 at 1444 by SHIRLENE PASTRANA PT Amended: Links added.
--- NOTE | 2019-04-30 15:57 | NUR ---
RESPIRATORY NOTE: Pt refused breathing TX. Pt is awakw, alert, oriented, no SOB or resp distress. Pt stated that she wanted to be off breathing Tx for now. RN Sylvester made aware. Will continue to monitor pt.
--- NOTE | 2019-04-30 19:40 | NUR ---
NURSE NOTES: Received patient from Davis TOPETE. Patient on room air, no signs of respiratory distress. Off fluids, patient refusing. Bed in low position, locked, call light within reach.
[2019-04-30] MEDS ORDERED: TraZODone 50mg tab ORAL SCH (21:00)
[2019-04-30] MEDS ORDERED: cefTRIAXone 1 GM in D5W 55 ML IVPB SCH ×4 (22:00)
--- NOTE | 2019-04-30 23:04 | Pulmonology Progress Note ---
Assessment/Plan Assessment/Plan Pulmonary Progress Note Assessment/Plan 1. Status asthmaticus. 2. Hypertension. BP better lower O2 needs breathing better no BiPAP overnight improving Tele BP meds increased Subjective ROS Limited/Unobtainable: No Constitutional: Reports: no symptoms Respiratory: Reports: shortness of breath - better Allergies: Coded Allergies: No Known Allergies (Unverified , 04/27/19) Objective Vital Signs Noted General Appearance: no acute distress HEENT: atraumatic Respiratory/Chest: decreased breath sounds, expiratory wheezing Cardiovascular: normal rate Microbiology Date/Time Source Procedure Growth Status 04/27/19 06:50 Nasal Nares MRSA Culture - Final NO METHICILLIN RESISTANT STAPH AUREUS... Complete 04/27/19 06:50 Rectum VRE Culture - Final NO VANCOMYCIN RESISTANT ENTEROCOCCUS ... Complete 04/27/19 06:50 Rectum - Final NO CARBAPENEM-RESISTANT ENTEROBACTERI... Complete Laboratory Tests 04/29/19 04:20: White Blood Count 14.9H, Red Blood Count 3.98L, Hemoglobin 11.7L, Hematocrit 35.1L, Mean Corpuscular Volume 88, Mean Corpuscular Hemoglobin 29.3, Mean Corpuscular Hemoglobin Concent 33.2, Red Cell Distribution Width 12.2, Platelet Count 324, Mean Platelet Volume 5.6L, Neutrophils (%) (Auto) , Lymphocytes (%) ( Auto) , Monocytes (%) (Auto) , Eosinophils (%) (Auto) , Basophils (%) (Auto) , Sodium Level 141, Potassium Level 3.5, Chloride Level 108H, Carbon Dioxide Level 23, Anion Gap 10, Blood Urea Nitrogen 21H, Creatinine 1.1, Estimat Glomerular Filtration Rate , Glucose Level 164H, Calcium Level 8.4L, Total Bilirubin 0.2, Aspartate Amino Transf (AST/SGOT) 39H, Alanine Aminotransferase ( ALT/SGPT) 23, Alkaline Phosphatase 57, Total Protein 6.1L, Albumin 3.3L, Globulin 2.8, Albumin/Globulin Ratio 1.2 Current Medications Medications (Trade) Dose Ordered Sig/Markus Route PRN Reason Start Time Stop Time Status Last Admin Dose Admin Acetaminophen/ Aspirin/Caffeine (Excedrin Migraine) 1 ea Q6H PRN ORAL headache 04/27/19 19:30 05/27/19 19:29 04/27/19 20:05 Albuterol/ Ipratropium (Albuterol/ Ipratropium) 3 ml Q4HRT HHN 04/27/19 11:00 05/02/19 10:59 04/29/19 11:05 Azithromycin (Zithromax) 250 mg DAILY ORAL 04/28/19 09:00 05/05/19 08:59 04/29/19 09:09 Ceftriaxone Sodium 1 gm/ Dextrose 55 ml @ 110 mls/hr Q24H IVPB 04/27/19 22:00 05/04/19 21:59 04/28/19 21:46 Dextrose/Sodium Chloride 1,000 ml @ 75 mls/hr [id number] IV 04/27/19 23:15 05/27/19 23:14 04/28/19 23:29 Diphenhydramine HCl (Benadryl) 25 mg Q4H PRN IVP Itching 04/27/19 11:45 05/27/19 11:44 Levothyroxine Sodium (Synthroid) 50 mcg DAILY@0630 ORAL 04/29/19 06:30 05/29/19 06:29 04/29/19 06:05 Lisinopril (Zestril) 10 mg Q12HR ORAL 04/28/19 21:00 05/28/19 20:59 04/29/19 09:09 Methylprednisolone Sodium Succinate (Solu-MEDROL) 40 mg Q8H IVP 04/28/19 20:00 05/27/19 19:59 04/29/19 11:57 Pravastatin Sodium (Pravachol) 40 mg BEDTIME ORAL 04/28/19 21:00 05/28/19 20:59 04/28/19 21:42 Trazodone HCl (Desyrel) 50 mg BEDTIME ORAL 04/28/19 21:00 05/28/19 20:59 04/28/19 21:43 Vitamin D (Vitamin D) 3,000 intlu DAILY ORAL 04/28/19 09:00 05/28/19 08:59 04/29/19 09:09 Subjective ROS Limited/Unobtainable: No Allergies: Coded Allergies: No Known Allergies (Unverified , 04/27/19) Objective Last 24 Hour Vital Signs Date Time Temp Pulse Resp B/P (MAP) Pulse Ox O2 Delivery O2 Flow Rate FiO2 04/30/19 23:01 Room Air 21 04/30/19 23:01 Room Air 21 04/30/19 21:03 159/83 04/30/19 20:00 98.0 80 20 159/83 (108) 97 04/30/19 19:27 96 Room Air 21 04/30/19 19:27 Room Air 21 04/30/19 19:27 Room Air 21 04/30/19 18:27 161/74 04/30/19 16:00 98.4 78 20 161/74 (103) 93 04/30/19 16:00 86 04/30/19 15:57 Nasal Cannula 2.0 28 04/30/19 15:57 Nasal Cannula 2.0 28 04/30/19 12:00 2.0 04/30/19 11:27 97.4 70 18 128/70 (89) 97 04/30/19 11:27 82 04/30/19 11:18 Nasal Cannula 2.0 28 04/30/19 11:18 Nasal Cannula 2.0 28 04/30/19 09:00 Nasal Cannula 2.0 04/30/19 08:29 130/70 04/30/19 08:00 97.4 70 18 130/70 (90) 97 04/30/19 08:00 2.0 04/30/19 07:40 74 17 100 Nasal Cannula 2.0 28 04/30/19 07:30 90 04/30/19 07:29 92 Room Air 21 04/30/19 07:29 73 18 92 Room Air 21 04/30/19 04:00 2.0 04/30/19 04:00 97.4 68 18 122/74 (90) 97 04/30/19 04:00 82 04/30/19 03:37 81 18 100 Nasal Cannula 2.0 28 04/30/19 03:25 77 20 98 Nasal Cannula 2.0 28 04/30/19 02:00 2.0 04/30/19 01:00 89 20 138/66 (90) 100 04/30/19 00:00 97.6 89 21 145/66 (92) 100 04/30/19 00:00 Nasal Cannula 2.0 04/29/19 23:28 85 18 99 Nasal Cannula 2.0 28 04/29/19 23:10 83 20 98 Nasal Cannula 2.0 28 Intake and Output 04/29/19 04/30/19 19:00 07:00 Intake Total 1631.25 ml 920 ml Output Total 310 ml Balance 1631.25 ml 610 ml Intake Oral 750 ml 160 ml IV Total 881.25 ml 760 ml Output Urine Total 310 ml # Voids 2 Current Medications Medications (Trade) Dose Ordered Sig/Markus Route PRN Reason Start Time Stop Time Status Last Admin Dose Admin Acetaminophen/ Aspirin/Caffeine (Excedrin Migraine) 1 ea Q6H PRN ORAL headache 04/30/19 01:30 05/27/19 01:29 Albuterol/ Ipratropium (Albuterol/ Ipratropium) 3 ml Q4HRT HHN 04/30/19 03:00 05/02/19 10:59 04/30/19 07:29 Azithromycin (Zithromax) 250 mg DAILY ORAL 04/30/19 09:00 05/05/19 08:59 04/30/19 08:29 Dextrose/Sodium Chloride 1,000 ml @ 75 mls/hr [id number] IV 04/30/19 01:30 05/27/19 23:14 04/30/19 16:15 Diphenhydramine HCl (Benadryl) 25 mg Q4H PRN IVP Itching 04/30/19 01:45 05/27/19 01:44 Levothyroxine Sodium (Synthroid) 50 mcg DAILY@0630 ORAL 04/30/19 06:30 05/29/19 06:29 04/30/19 05:40 Lisinopril (Prinivil) 20 mg BID ORAL 05/01/19 09:00 05/31/19 08:59 Methylprednisolone Sodium Succinate (Solu-MEDROL) 40 mg Q8H IVP 04/30/19 04:00 05/27/19 19:59 04/30/19 21:05 Pravastatin Sodium (Pravachol) 40 mg BEDTIME ORAL 04/30/19 21:00 05/28/19 20:59 04/30/19 21:02 Trazodone HCl (Desyrel) 50 mg BEDTIME ORAL 04/30/19 21:00 05/28/19 20:59 04/30/19 21:02 Vitamin D (Vitamin D) 3,000 intlu DAILY ORAL 04/30/19 09:00 05/28/19 08:59 04/30/19 08:30 Scott Pritchett MD Apr 30, 2019 23:04
[2019-05-01 00:45] VITALS: BP 150/75
[2019-05-01] MEDS: Albuterol/Ipratropium 3ml neb HHN SCH ×2 (03:00→07:50)
[2019-05-01 04:00] VITALS: BP 159/79
[2019-05-01] MEDS: Solu-MEDROL 40mg Inj IVP SCH (04:00)
--- NOTE | 2019-05-01 04:00 | NUR ---
NURSE NOTES: Patient upset because she has had to urinate frequently throughout the night and had diarrhea during the day. She states she is not gonna take anymore medication or food and wants to go home. She refused the 0400 solumedrol and continues to refuse IV fluids. She also refused her synthroid and states that she just wants to go home.
[2019-05-01] MEDS: D5NS 1,000 ML IV SCH (04:10)
--- NOTE | 2019-05-01 07:35 | NUR ---
HAND-OFF: Report given to Davis TOPETE. Patient in stable condition. Plan of care endorsed.
--- NOTE | 2019-05-01 07:52 | NUR ---
NURSE NOTES: Report given by Jose C TOPETE. Patient is awake and laying in bed. Bed is at the lowest position, she's on room air O2, no s/s of SOB, no distress, no pain. Her IV site is intact, no s/s of redness, tenderness or pain. Call light within reach. AO x 4. Patient took out tele box and it was on the table. I put it back and reconnected.
[2019-05-01 08:00] VITALS: BP 153/76
[2019-05-01] MEDS: Vitamin D 1000 IU Tab ORAL SCH (09:00)
[2019-05-01] MEDS: Azithromycin 250mg tab ORAL SCH (09:00)
[2019-05-01] MEDS ORDERED: Lisinopril 20mg tab ORAL SCH (09:00)
[2019-05-01 09:08] VITALS: BP 153/76
--- NOTE | 2019-05-01 10:44 | NUR ---
NURSE NOTES: Patient has been anxious about leaving. MD called and ordered discharged.
[2019-05-01] MEDS ORDERED: LISINOPRIL20 MG ORAL (10:54)
--- NOTE | 2019-05-01 11:08 | NUR ---
NURSE NOTES: ordered D/C, gave the doctor the patients pharmacy of [facility] [phone]..
--- NOTE | 2019-05-01 11:13 | NUR ---
NURSE NOTES: Removed ID bands and IV. Patient dressed herself, calm and cooperative. OX4. Vital WNL. sports medicine specialist off. Patient given after careplan and med recon. Patient was picked up by friend.
--- NOTE | 2019-05-02 09:37 | Diagnostic Imaging Report ---
APPROVED REPORT CPT Code: 04558 Present Symptoms Comments: BILATERAL LEGS PAIN. BILATERAL: Imaging reveals a patent deep venous system bilaterally. There is no evidence of thrombus within the femoral, popliteal or tibial segments. The greater saphenous veins are also within normal limits. Doppler indicates normal spontaneous flow within these segments.
--- NOTE | 2019-05-02 21:34 | Discharge Summary ---
Discharge Summary Discharge Summary _ DATE OF ADMISSION: 04/27/2014 DATE OF DISCHARGE: 05/01/2014 DISCHARGED BY: Dr. Linares REASON FOR ADMISSION: 78 years old female with past medical history of hypertension and asthma, presented to emergency department with several days of increasing shortness of breath and cough. Patient had been seen in urgent care for cough and treated with nebulizing therapy. Patient was discharged on Medrol Dosepak. Patient denied fever and chills. Patient denied chest pain. Patient presented via shank turner with severe shortness of breath and pulse oximetry only 79%. On evaluation she was also found to be tachycardic and tachypneic, blood pressure was elevated. Patient was placed on the BiPAP. Patient received a loading dose of steroid and started on empiric antibiotic in ED . Chest x-ray revealed no acute cardiopulmonary pathology. ABG on BiPAP showed pulse oximetry of 90%. Lactic acid 3.9. WBC 15.1, stable hemoglobin and hematocrit. Stable electrolytes and renal parameters. Glucose 194. Troponin negative. Pro BNP 1153. Patient admitted for further management. HOSPITAL COURSE: Patient initially admitted to intensive care unit. Supplemental oxygen provided as needed to keep pulse oximetry above 92%. Patient started on IV steroids with gradual tapering down , bronchodilator treatment via handheld nebulizing therapy and empiric antibiotic. Elevated lactic acid was probably as a result of respiratory distress without sepsis. Lactic acid down to 1.2. However, patient was covered with antibiotic for possible respiratory infection. Venous duplex bilateral lower extremity revealed no evidence of acute DVT. Home medications were resumed. Blood pressure was managed with ESMER inhibitor, dose was uptitrated. Levothyroxine continued. Patient was clinically improving. Patient was able to be weaned from the BiPAP and placed on supplemental oxygen via nasal cannula. Patient was frequently transferred to telemetry floor. Blood culture negative. No fevers. Leukocytosis was likely due to intake of steroids. Patient clinically stabilized and was ready for discharge home FINAL DIAGNOSES: Acute respiratory failure, hypoxic type Status asthmaticus Hypertension DISCHARGE MEDICATIONS: See Medication Reconciliation list. DISCHARGE INSTRUCTIONS: Patient was discharged home . Follow up with primary care provider in one week. I have been assigned to dictate discharge summary for this account. I was not involved in the patient's management. Mariana Jacob NP May 02, 2019 21:34
== END 2019-05-01 11:17 | disposition home or self-care (01) | DRG 202 ==
LOC: EDBD 05:30 → EMR 05:38 → EDBEDREQ 06:12 → 2W 06:16 → EDBEDREQ 06:33 → EDBEDREQSVC 06:43 → EDBEDREQ 06:44 → ICU 06:57 → EDBEDREQ 07:20 → 2E 04-30 01:25
PROC: 5A09357 Assistance with Respiratory Ventilation, Less than 24 Consecutive Hours, Continuous Positive Airway Pressure (ICD-10-PCS; principal; 2019-04-27)
DX: J45.902 Unspecified asthma with status asthmaticus (principal); J96.01 Acute respiratory failure with hypoxia; I10 Essential (primary) hypertension
CPT/HCPCS: 36415; 36600; 71045; 80053; 81003; 82550; 82553; 82803; 83605; 83880; 84484; 85025; 85610; 85730; 87040; 87081; 93005; 93970; 94640; 94660; 94664; 96365; 96368; 96375; 99291; J7620